=== PATIENT | female | born 2000 | race African-American/Black ===

== ENCOUNTER 2018-09-06 19:45 | Emergency (ER) | payer OTHER ==
[2018-09-06 21:55] VITALS: BP 127/71
[2018-09-06 23:49] LABS: ALT 17 U/L (7-52); Albumin 4.5 g/dL (3.2-5.2); Albumin/Globulin Ratio 1.2 (1-3); Alkaline Phosphatase 51 U/L (34-104); Blood Urea Nitrogen 15 mg/dL (6-24); C Reactive Protein 5.37 mg/L (<8.01); CO2 Carbon Dioxide 26 mmol/L (22-32); Calcium 9.6 mg/dL (8.6-10.3); Chloride 104 mmol/L (101-111); EGFR African American 119.2 (>60); EGFR Non-African American 98.5 (>60); Globulin 3.7 g/dL (2-4); Glucose 93 mg/dL (70-100); Sodium 134 mmol/L (135-145); Total Protein 8.2 g/dL (6.4-8.9)
[2018-09-06 23:55] LABS: HCG Pregnancy < 0.60 mIU/mL
[2018-09-07 00:03] LABS: AST 18 U/L (13-39); Anion Gap 4 mmol/L (2-11); Potassium 3.8 mmol/L (3.5-5.0)
[2018-09-07 00:15] LABS: TSH (Thyroid Stimulating Horm) 1.73 mcIU/mL (0.34-5.60)
[2018-09-07] MEDS ORDERED: Ibuprofen TAB* 600 MG PO ONE (00:42)
[2018-09-07 00:45] LABS: Barbiturates Urine Screen None Detected (None Detect); Benzodiazepine Urine Screen None Detected (None Detect); Urine Cannabinoids Screen None Detected (None Detect)
--- NOTE | 2018-09-07 00:46 | ED ---
HPI Chest Pain - HPI Summary HPI Summary: Patient complains of sternal and left-sided chest pain radiating under left breast starting this a.m. [facility] for further evaluation of mild tachycardia and possible EKG changes. Patient states she woke up with this pain, described as burning, worst 8/10, worse with coughing and inhaling deeply. Patient has history of asthma used inhaler with no relief. Given GI cocktail at convenient care with no relief. Chest x-ray at convenient care unremarkable. Patient denies fever, CARRION, sore throat, neck stiffness, SOB, N/V/D, abdominal pain, change in urine, change in BM. Medical history is GERD, asthma, IBS, insulin resistance. Also denies history of blood clots, recent long travel, history of cancer, , unilateral leg pain, use of control, recent surgery or trauma. - History of Current Complaint Chief Complaint: EDChestWallPain Time Seen by Provider: 09/06/18 23:01 Hx Obtained From: Patient Onset/Duration: Started Hours Ago Timing: Constant Initial Severity: Severe Current Severity: Severe Pain Intensity: 8 Pain Scale Used: 0-10 Numeric Chest Pain Location: Mid Sternal, Left Lateral Chest Pain Radiates: No Character: Burning Aggravating Factor(s): Nothing Alleviating Factor(s): Nothing - Allergy/Home Medications Allergies/Adverse Reactions: Allergies Allergy/AdvReac Type Severity Reaction Status Date / Time No Known Allergies Allergy Verified 09/06/18 20:03 Home Medications: Home Medications NK [No Home Medications Reported] 09/06/18 [History Confirmed 09/06/18] PMH/Surg Hx/FS Hx/Imm Hx Endocrine/Hematology History: Denies: Hx Anticoagulant Therapy Cardiovascular History: Denies: Hx Cardiac Arrest History: Denies: Hx Dialysis Musculoskeletal History: Denies: Hx Gout Sensory History: Denies: Hx Eye Injury Opthamlomology History: Denies: Hx Eye Prosthesis EENT History: Denies: Hx Deafness Neurological History: Denies: Hx Dementia Psychiatric History: Denies: Hx Autism Infectious Disease History: No Infectious Disease History: Denies: Traveled Outside the [place] in Last 30 Days - Social History Occupation: Student Alcohol Use: None Substance Use Type: Reports: None Smoking Status (MU): Never Smoked Tobacco Review of Systems Constitutional: Negative Eyes: Negative ENT: Negative Positive: Chest Pain Positive: Cough Gastrointestinal: Negative Genitourinary: Negative Musculoskeletal: Negative Skin: Negative Neurological: Negative Psychological: Normal All Other Systems Reviewed And Are Negative: Yes Physical Exam - Summary Physical Exam Summary: Chest Pain reproducible with palpation. Mildly tachycardic. Lung sounds clear to auscultation bilaterally. Abdomen soft nontender. No evidence of ecchymosis , erythema, swelling, deformity noted to chest wall. Triage Information Reviewed: Yes Vital Signs On Initial Exam: Initial Vitals Temp Pulse Resp BP Pulse Ox 99.6 F 105 18 138/89 97 09/06/18 19:58 09/06/18 19:58 09/06/18 19:58 09/06/18 19:58 09/06/18 19:58 Vital Signs Reviewed: Yes Appearance: Positive: Well-Appearing Skin: Positive: Warm Head/Face: Positive: Normal Head/Face Inspection Eyes: Positive: Normal ENT: Positive: Normal ENT inspection Neck: Positive: Supple Respiratory/Lung Sounds: Positive: Clear to Auscultation Cardiovascular: Positive: Tachycardia Abdomen Description: Positive: Nontender Musculoskeletal: Positive: Normal Neurological: Positive: Normal Psychiatric: Positive: Normal AVPU Assessment: Alert - Shayy Coma Scale Best Eye Response: 4 - Spontaneous Best Motor Response: 6 - Obeys Commands Best Verbal Response: 5 - Oriented Coma Scale Total: 15 Diagnostics - Vital Signs Vital Signs Temp Pulse Resp BP Pulse Ox 09/06/18 21:55 98.3 F 101 18 127/71 100 09/06/18 19:58 99.6 F 105 18 138/89 97 - Laboratory Lab Results: Lab Results 09/06/18 09/06/18 Range/Units 23:24 23:24 D-Dimer, Quantitative < 200 (Less Than 230) ng/mL Sodium 134 L (135-145) mmol/L Potassium 3.8 (3.5-5.0) mmol/L Chloride 104 (101-111) mmol/L Carbon Dioxide 26 (22-32) mmol/L Anion Gap 4 (2-11) mmol/L BUN 15 (6-24) mg/dL Creatinine 0.75 (0.51-0.95) mg/dL Est GFR ( Amer) 119.2 (>60) Est GFR (Non-Af Amer) 98.5 (>60) BUN/Creatinine Ratio 20.0 (8-20) Glucose 93 (70-100) mg/dL Calcium 9.6 (8.6-10.3) mg/dL Magnesium 2.0 (1.9-2.7) mg/dL Total Bilirubin 0.30 (0.2-1.0) mg/dL AST 18 (13-39) U/L ALT 17 (7-52) U/L Alkaline Phosphatase 51 (34-104) U/L Troponin I 0.00 (<0.04) ng/mL C-Reactive Protein 5.37 (<8.01) mg/L Total Protein 8.2 (6.4-8.9) g/dL Albumin 4.5 (3.2-5.2) g/dL Globulin 3.7 (2-4) g/dL Albumin/Globulin Ratio 1.2 (1-3) Lipase 18 (11.0-82.0) U/L TSH 1.73 (0.34-5.60) mcIU/mL Beta HCG, Quant < 0.60 mIU/mL Result Diagrams: 09/06/18 23:24 Lab Statement: Any lab studies that have been ordered have been reviewed, and results considered in the medical decision making process. Chest Pain Course/Dx - Course Course Of Treatment: Patient complains of sternal and left-sided chest pain radiating under left breast starting this a.m. [facility] for further evaluation of mild tachycardia and possible EKG changes. Patient states she woke up with this pain, described as burning, worst 8/10, worse with coughing and inhaling deeply. Patient has history of asthma used inhaler with no relief. Given GI cocktail at convenient care with no relief. Patient denies fever, CARRION, sore throat, neck stiffness, SOB, N/V/D, abdominal pain, change in urine, change in BM. Medical history is GERD, asthma , IBS, insulin resistance. Also denies history of blood clots, recent long travel, history of cancer, , unilateral leg pain, use of control , recent surgery or trauma. Physical exam:Chest Pain reproducible with palpation. Mildly tachycardic. Lung sounds clear to auscultation bilaterally. Abdomen soft nontender. No evidence of ecchymosis, erythema, swelling, deformity noted to chest wall. Mild tachycardia, vital signs otherwise within normal limits. Labs unremarkable be. D-dimer negative. Chest x-ray negative for [facility]. EKG sinus tach here. Diagnosis chest wall pain. - Diagnoses Provider Diagnoses: Atypical chest pain Discharge - Sign-Out/Discharge Documenting (check all that apply): Patient Departure Patient Received Moderate/Deep Sedation with Procedure: No - Discharge Plan Condition: Stable Disposition: HOME Patient Education Materials: Chest Pain (ED), Chest Wall Pain (ED) Referrals: [facility] - Kory EMMANUEL [Primary Care Provider] - Additional Instructions: Take ibuprofen 600 mg every 6 hours for chest wall pain. Return to the ED for any new or worsening symptoms. - Billing Disposition and Condition Condition: STABLE Disposition: Home
== END 2018-09-07 01:05 | disposition home or self-care (01) ==
LOC: ED 19:45
DX: R07.89 Other chest pain (principal); R00.0 Tachycardia, unspecified; K21.9 Gastro-esophageal reflux disease without esophagitis; J45.909 Unspecified asthma, uncomplicated; K58.9 Irritable bowel syndrome, unspecified
CPT/HCPCS: 36415; 80053; 80307; 83690; 83735; 84443; 84484; 84702; 85379; 86140; 93005; 99283; A9270-GY